=== PATIENT | male | born 1970 | race Caucasian/White ===

== ENCOUNTER 2018-08-16 18:11 | Emergency (ER) | payer OTHER ==
[2018-08-16 18:29] VITALS: Ht 165.1 cm
[2018-08-16 22:24] VITALS: BP 124/84
== END 2018-08-16 22:24 | disposition home or self-care (01) ==
LOC: ED 18:11
DX: S62.522A Displaced fracture of distal phalanx of left thumb, initial encounter for closed fracture (principal); W20.8XXA Other cause of strike by thrown, projected or falling object, initial encounter; Y93.89 Activity, other specified; Y92.59 Other trade areas as the place of occurrence of the external cause; Y99.8 Other external cause status
CPT/HCPCS: 90715; J2001

== ENCOUNTER 2018-08-18 15:28 | Emergency (ER) | payer OTHER ==
[~2018-08-18] VITALS: Ht 172.7 cm; Wt 93.0 kg
[2018-08-18 15:43] VITALS: BP 132/74; Ht 172.7 cm; Wt 93.0 kg
== END 2018-08-18 16:55 | disposition home or self-care (01) ==
LOC: ED 15:28
DX: S61.112D Laceration without foreign body of left thumb with damage to nail, subsequent encounter (principal); X58.XXXD Exposure to other specified factors, subsequent encounter

== ENCOUNTER 2018-08-24 17:24 | Emergency (ER) | payer OTHER ==
[~2018-08-24] VITALS: Ht 165.1 cm; Wt 91.9 kg
[2018-08-24 17:27] VITALS: Ht 165.1 cm; Wt 91.9 kg
[2018-08-24 18:00] VITALS: BP 117/80
== END 2018-08-24 18:00 | disposition home or self-care (01) ==
LOC: ED 17:24
DX: S61.012D Laceration without foreign body of left thumb without damage to nail, subsequent encounter (principal); W20.8XXD Other cause of strike by thrown, projected or falling object, subsequent encounter